=== PATIENT | female | born 1990 | race Caucasian/White ===

== ENCOUNTER 2018-02-22 13:27 | Inpatient (IN) | payer MEDICAID, OTHER, SELFPAY ==
[2018-02-22] MEDS ORDERED: NS / Oxytocin 40 units/1000ml 1,000 ML IV PRN (15:00)
[2018-02-22] MEDS ORDERED: Misoprostol 200 MCG TAB PR PRN (15:00)
[2018-02-22] MEDS ORDERED: Sodium Chloride 0.9% 100 ML ONE (15:00)
[2018-02-22] MEDS ORDERED: HYDROcodone/Acetaminophen 5/325 mg Tablet PO PRN (15:00)
[2018-02-22] MEDS ORDERED: Diphenoxylate HCl/Atropine Tablet PO PRN (15:00)
[2018-02-22] MEDS ORDERED: Ondansetron PF 4 MG/2 ML Vial IVP PRN ×2 (15:00→23:25)
[2018-02-22] MEDS ORDERED: Penicillin G Potassium 5 MILL.UNITS VIAL ONE (15:00)
[2018-02-22] MEDS ORDERED: Methylergonovine 0.2 MG/ML VIAL IM PRN (15:00)
[2018-02-22] MEDS ORDERED: Penicillin G Potassium 5 MILL.UNITS in Sodium Chloride 0.9% 100 ML IVPB SCH (15:00)
[2018-02-22] MEDS ORDERED: Ibuprofen 800 MG TAB PO PRN (15:00)
[2018-02-22] MEDS ORDERED: Carboprost 250 MCG/ML AMP IM PRN (15:00)
[2018-02-22] MEDS ORDERED: Lidocaine 1% (PF) 30 ML VIAL SC PRN (15:00)
[2018-02-22] MEDS ORDERED: NS w/ Oxytocin 10 units 0 ML ONE (15:15)
[2018-02-22] MEDS: Lactated Ringer's 1,000 ML IV SCH (15:27)
[2018-02-22 15:45] LABS: Hemoglobin 12.5 g/dL (12.0-16.0); Mean Corpuscular HGB CONC 35.2 g/dL (32.0-36.0); Mean Corpuscular Hemoglobin 32.4 pg (27.0-31.0); Mean Corpuscular Volume 92.1 fL (78.0-98.0); Mean Platelet Volume 9.2 fL (7.4-10.4); Platelet Count 277 thou/uL (130-400); RBC Distribution Width 12.3 % (11.5-14.5); Red Blood Cell (RBC) Count 3.84 mill/uL (4.20-5.40); White Blood Cell (WBC) Count 12.3 thou/uL (4.8-10.8)
[2018-02-22 16:21] VITALS: BMI 33.6
[2018-02-22 16:25] LABS: HBSAg Index 0.14 S/CO (0-0.99); Hep B Surf Ag Non-Reactive S/CO (NonReactive); Syphilis Antibody Nonreactive (Nonreactive); Syphilis Antibody Index 0.06 S/CO (<1.00 Non-Reactive)
[2018-02-22] MEDS ORDERED: NS w/ Oxytocin 10 units 500 ML IV SCH (17:00)
[2018-02-22] MEDS ORDERED: NS w/ Oxytocin 10 units 500 ML ONE (17:00)
--- NOTE | 2018-02-22 17:15 | PDOC.EVN ---
Event Note - Event Note Event Note: Asked to manage by Dr. Gomez. at 40 2/7 weeks, GBS +. 1st dose ABX given. AROM with light meconium seen. Last eam was / vtx. Pitocin starting now. Plan: Pitocin induction. Cont. ABX for + GBS status.
[2018-02-22] MEDS: Butorphanol Tartrate 1 MG/ML VIAL SLOW IVP PRN ×3 (18:56→22:22)
[2018-02-22] MEDS: Penicillin G 2.5 MILL.units 2.5 MILL.UNITS in Premix Bag 1 BAG IVPB SCH ×2 (19:45→23:45)
--- NOTE | 2018-02-22 19:52 | PDOC.EVN ---
Event Note - Event Note Event Note: /-3 Cat I strip Cxns every 2 min cont pitocin for augmentation GBS+ -second dose of penicillin at 2100 AROM -light [facility] <Bryan Caballero - Last Filed: 02/22/18 19:52> Attending Addendum - Attending Addendum Date/Time: 02/22/182210 I evaluated the patient and discussed the management with Dr. Caballero. I agree with the Assessment and Plan documented above. <Jerel Stearns - Last Filed: 02/22/18 22:11>
[2018-02-22] MEDS ORDERED: Fentanyl 4 mcg/Bup 0.1% Cadd 100 ML ONE (22:44)
--- NOTE | 2018-02-22 23:06 | PDOC.LDPN ---
Labor & Delivery Progress Note - Subjective Subjective: painful contractions - Objective Vital signs reviewed and normal: yes General: other (painful contractions) Dilation: 4 Effacement: 90% Station: -3 FHT: category 1 AROM: meconium stained fluid -: /-3 Cat I strip Cxns every 2 min cont pitocin for augmentation Check showed moderate cervical swelling, rec'd epidural to patient for pain management Risks/benefits of epidural were explained at length, patient agrees to epidural GBS+ -second dose of penicillin at 2100 AROM -light mec <Bryan Caballero - Last Filed: 02/22/18 23:04> Attending Addendum - Attending Addendum I personally evaluated the patient and discussed the management with Dr. Caballero. I agree with the Assessment and Plan documented above. <Jerel Stearns - Last Filed: 02/23/18 06:32>
[2018-02-22] MEDS ORDERED: Promethazine HCl 25 MG/ML VIAL IM PRN (23:25)
[2018-02-22] MEDS ORDERED: diphenhydrAMINE 50 MG/ML VIAL IVP PRN (23:25)
[2018-02-22] MEDS ORDERED: Lactated Ringer's 500 ML IV PRN (23:25)
[2018-02-22] MEDS ORDERED: ePHEDrine/0.9% NaCl/PF SYRINGE 50 mg/10 ml SLOW IVP PRN (23:25)
[2018-02-22] MEDS ORDERED: Hydrocerin (Eucerin) Cream 120 gm Jar TOP PRN (23:25)
[2018-02-22] MEDS ORDERED: Naloxone HCl 0.4 mg/ml Vial IVP PRN ×2 (23:25)
[2018-02-22] MEDS ORDERED: Acetaminophen 325 MG TAB PO PRN (23:25)
[2018-02-22] MEDS ORDERED: Fentanyl 4 mcg/Bupivacaine 0.1% Cassette 100 ML EPIDURAL SCH (23:30)
[2018-02-22] MEDS ORDERED: Communication Order-Pharmacy FS SCH (23:30)
--- NOTE | 2018-02-23 02:26 | PDOC.LDPN ---
Labor & Delivery Progress Note - Subjective Subjective: comfortable - Objective Vital signs reviewed and normal: yes General: NAD Dilation: 6 Effacement: 90% Station: -3 FHT: category 2, late decelerations (x3, then resolved) Other exam findings: 2-3 min AROM: meconium stained fluid - Assessment (1) Current Visit: Yes Status: Acute Comment: labor management -: /-3 Cat II strip Cxns every 2-3 min, late decels x3 bolus, position change, stopped pitocin will plan to re-check and restart pitocin in 1 hour or so resting comfortably with epidural GBS+ -penicillin prophylaxis AROM -light mec <Bryan Caballero - Last Filed: 02/23/18 02:27> Attending Addendum - Attending Addendum I personally evaluated the patient and discussed the management with Dr. Caballero. I agree with the Assessment and Plan documented above. <Jerel Stearns - Last Filed: 02/23/18 06:31>
--- NOTE | 2018-02-23 03:36 | PDOC.LDPN ---
Labor & Delivery Progress Note - Subjective Subjective: comfortable - Objective Abnormal vital signs: temp 100.9 General: NAD Uterine fundus: non tender Effacement: 90% Station: -2 FHT: category 1 [place] contractions every: 2 min AROM: meconium stained fluid - Assessment (1) Current Visit: Yes Status: Acute Comment: labor management -: /-2 Cat I strip Cxns every 2-3 min pit at 2 resting comfortably with epidural Chorioamnionitis - temp 100.9 - started amp/gent GBS+ -on ampicillin AROM - AROM at 1654 on 02/23, mec at that time <Bryan Caballero - Last Filed: 02/23/18 03:36> Attending Addendum - Attending Addendum I personally evaluated the patient and discussed the management with Dr. Caballero. I agree with the Assessment and Plan documented above. <Jerel Stearns - Last Filed: 02/23/18 06:30>
[2018-02-23] MEDS ORDERED: Gentamicin 20 MG/2 ML PF (Neonates) IVPB SCH ×2 (03:45→06:00)
[2018-02-23] MEDS ORDERED: Ampicillin 125 MG/5 ML VIAL IVPB SCH (03:45)
[2018-02-23] MEDS: Gentamicin Sulfate 80 MG in Premix Bag 1 BAG IVPB SCH ×3 (04:05→21:27)
[2018-02-23] MEDS: Ampicillin 2 GM in Sodium Chloride 0.9% 100 ML IVPB SCH ×4 (05:00→23:29)
[2018-02-23] MEDS ORDERED: Ampicillin 125 MG/5 ML VIAL SLOW IVP SCH (06:00)
--- NOTE | 2018-02-23 06:09 | PDOC.LDPN ---
Labor & Delivery Progress Note - Subjective Subjective: comfortable - Objective Vital signs reviewed and normal: yes General: NAD Uterine fundus: non tender Dilation: 7 Effacement: 90% Station: -2 FHT: category 1 [place] contractions every: 2 AROM: meconium stained fluid - Assessment (1) Current Visit: Yes Status: Acute Comment: labor management -: /-2 Cat I strip Cxns every 2-3 min on pitocin resting comfortably with epidural Chorioamnionitis - Tmax 100.9, last temp 100.4 - started amp/gent at 0400 GBS+ -on ampicillin AROM - AROM at 1654 on 02/23, mec at that time <Bryan Caballero - Last Filed: 02/23/18 06:07> Attending Addendum - Attending Addendum I personally evaluated the patient and discussed the management with Dr. Caballero. I agree with the Assessment and Plan documented above. <Jerel Stearns - Last Filed: 02/23/18 06:29>
[2018-02-23] MEDS ORDERED: Acetaminophen 325 MG Suppository PR SCH (06:15)
[2018-02-23] MEDS ORDERED: Lactated Ringer's 500 ML IV SCH (06:30)
[2018-02-23] MEDS: Lactated Ringer's 1,000 ML IV SCH ×3 (07:06→23:09)
--- NOTE | 2018-02-23 07:14 | PDOC.EVN ---
Event Note - Event Note Event Note: Comfortable with epidural. Temp at 6a= 100.7. IUPC placed at last exam. Fhts with adeq. BTBV, accels noted, no decels seen. SVE by me= /0 vtx. Pit at 6 mu/min. UCs q 2-4 min, adeq. pattern seen. A/P: Progressing now, continue Amp and Gent for chorioamnionitis.
--- NOTE | 2018-02-23 09:15 | PDOC.LDPN ---
Labor & Delivery Progress Note - Subjective Subjective: comfortable - Objective Abnormal vital signs: Febrile, tachycardic General: NAD, resting Uterine fundus: non tender SVE: 9:15 by Amee Dilation: 8 Effacement: 100% Station: 0 FHT: category 1, variability present [place] contractions every: q2 min with couplet contractions AROM: meconium stained fluid IUPC placed: yes - Assessment (1) Term Code(s): Z34.80 - ENCOUNTER FOR SUPRVSN OF NORMAL , UNSP TRIMESTER Current Visit: Yes Status: Acute (2) Chorioamnionitis Code(s): O41.1290 - CHORIOAMNIONITIS, UNSP TRIMESTER, NOT APPLICABLE OR UNSP Current Visit: Yes Status: Acute (3) GBS (group B Streptococcus carrier), +RV culture, currently Code(s): O99.820 - STREPTOCOCCUS B CARRIER STATE COMPLICATING Current Visit: Yes Status: Acute (4) Rh negative status during Code(s): O09.899 - SUPERVISION OF OTHER HIGH RISK PREGNANCIES, UNSP TRIMESTER; Z67.91 - UNSPECIFIED BLOOD TYPE, RH NEGATIVE Current Visit: Yes Status: Acute Plan: continue plan of care, labor augmentation, pitocin for augmentation -: 27 y/o Term in active labor - Cervical check 8/100/0 at 8:00 AM; no change from 2 hours previous - If patient not fully dilated, then will proceed with c/s as pt high risk with chorioamnionitis - On pitocin, resting comfortably with epidural Chorioamnionitis - Tmax 100.9, last temp 100.4 - started amp/gent at 0400 GBS+ -on ampicillin AROM - AROM at 1654 on 02/23, mec at that time Rh negative - Will need rhogam PP Dispo: If not complete and no descent in 2 hours, will plan for pLTCS. Patient has been ruptured since 16:54 yesterday and spiked fever at 0400. Amp/Gent started at 0400 for chorioamnionitis. Rain Lubin, DO PGY-2
--- NOTE | 2018-02-23 11:35 | PDOC.EVN ---
Event Note - Event Note Event Note: 02/23/2018 at 11:30 Rechecked patient at 11:15 and patient 9/100/+1. MVU's adequate. Patient not progressing as would be expected. As previously mentioned will proceed with C/S since patient not complete and labor has been dysfunctional. Discussed with patient in detail need to proceed with C/S at this time for failure to dilate/ failure to progress. Risks/benefits of C/S discussed with patient. Will give patient a dose of Clindamycin prior to C/S and continue for 24 hours after delivery. Will continue Amp/Gent for suspected IUI. Patient understood and was agreeable to proceed with C/S at this time. Rain Lubin, DO PGY-2 <Rain Lubin - Last Filed: 02/23/18 11:29> - Event Note Event Note: FACULTY NOTE: @1140: Patient has been 8cm/100/0 to +1 for 4 hours with adequate MVU (>200) persistenntly. Amp and Gent in use for suspected IAI. FHTs reactive, Level I. Due to no cervical change past 8cm despite adequate MVU, we will proceed for primary CS now that the ACOG guidelines/criteria for FTP have been met. We will add clinda to her postop regimine. Plan D/W patient and family. Anesthesia called. <Byron Luna - Last Filed: 02/23/18 11:40>
[2018-02-23] MEDS ORDERED: Bicitra 30 ML UDCUP PO SCH (11:45)
[2018-02-23] MEDS: Clindamycin/D5W 900 MG in Premix Bag 1 BAG IVPB SCH ×2 (12:05→20:13)
[2018-02-23] MEDS ORDERED: Ondansetron PF 4 MG/2 ML Vial IVP PRN (12:07)
[2018-02-23] MEDS ORDERED: Meperidine HCl/PF 25 MG/ML VIAL SLOW IVP PRN (12:07)
[2018-02-23] MEDS ORDERED: Eucerin (Mineral Oil/Petrolatum,White) 30 gm Jar TOP PRN (12:07)
[2018-02-23] MEDS ORDERED: HYDROmorphone 2 MG/ML VIAL SLOW IVP PRN (12:07)
[2018-02-23] MEDS ORDERED: Promethazine HCl 25 MG SUPP PR PRN (12:07)
[2018-02-23] MEDS ORDERED: L&D-Morphine 4 MG/ML VIAL SLOW IVP PRN (12:07)
[2018-02-23] MEDS ORDERED: Naloxone HCl 0.4 mg/ml Vial IVP PRN ×2 (12:07)
[2018-02-23] MEDS ORDERED: Promethazine HCl 25 MG/ML VIAL IM PRN (12:07)
[2018-02-23] MEDS ORDERED: Naloxone HCl 0.4 mg/ml Vial IV PRN (12:07)
[2018-02-23] MEDS ORDERED: diphenhydrAMINE 50 MG/ML VIAL IVP PRN (12:07)
[2018-02-23] MEDS ORDERED: Ondansetron HCl/PF 4 MG/2 ML Vial IVP PRN (12:07)
[2018-02-23] MEDS ORDERED: Communication Order-Pharmacy FS SCH (12:15)
[2018-02-23] MEDS ORDERED: Ketorolac Tromethamine 30 MG/ML VIAL IVP SCH (12:15)
[2018-02-23] MEDS ORDERED: Oxytocin 10 UNITS/ML VIAL ONE (12:16)
[2018-02-23] MEDS ORDERED: Morphine PF 1 MG/ML SYR ONE (12:16)
[2018-02-23] MEDS ORDERED: Ketorolac Tromethamine 30 MG/ML VIAL ONE ×2 (12:44→13:03)
--- NOTE | 2018-02-23 13:24 | PDOC.EVN ---
Event Note - Event Note Event Note: CS Note: Primary LTCS on at approx 1300...see dictation. Aaron Lubin and Jeremy EBL 600 Continue IV ABX
[2018-02-23] MEDS ORDERED: Lanolin Ointment 7 GM TUBE TOP PRN (13:28)
[2018-02-23] MEDS ORDERED: Measles/Mumps/Rubella 10 MCG/0.5 ML VIAL SC ONE (13:28)
[2018-02-23] MEDS ORDERED: Varicella virus, LIVE 0.5 ML VIAL SC ONE (13:28)
[2018-02-23] MEDS ORDERED: diphenhydrAMINE 25 MG CAP PO PRN (13:28)
[2018-02-23] MEDS ORDERED: Adacel (T-DAP) 0.5 ML SYRINGE IM ONE (13:28)
--- NOTE | 2018-02-23 15:07 | OP ---
DATE OF PROCEDURE: 02/23/2018 TIME OF PROCEDURE: Roughly 1300 hours or so. LOCATION: Labor and Delivery OR. PREOPERATIVE DIAGNOSES: 1. Primigravida with arrest of dilation/failure to progress at 8 cm. 2. Suspected intra-amniotic infection. POSTOPERATIVE DIAGNOSES: 1. Primigravida with arrest of dilation/failure to progress at 8 cm. 2. Suspected intra-amniotic infection. 3. Status post primary low transverse section. PROCEDURES PERFORMED: 1. Primary low transverse section via Pfannenstiel skin incision. 2. Delayed cord clamping of the . VEHICLE BODY [employer]KER: Rain Lubin DO ANESTHESIA: Labor epidural. ANTIBIOTICS: Ampicillin and gentamicin given preop. Intraop antibiotics were gentamicin which was the next scheduled dose and clindamycin 900 mg IV which was the additional antibiotic. ESTIMATED BLOOD LOSS: Roughly 600 mL, and QBL was pending. IV FLUIDS: About 1200 mL of crystalloids. URINE OUTPUT: About 300 mL of pink, slightly blood-tinged urine, but no tania hematuria. COMPLICATIONS: None. COUNTS: Correct. FINDINGS: 1. There are no intra-abdominal pelvic adhesions. 2. No uterine or adnexal pathology. 3. Thin meconium at entry into the uterine cavity. 4. NICU present in the room. 5. Vigorous male with Apgars 9 and 9. 6. Three-vessel cord, intact placenta. 7. Nuchal cord x1 reduced. 8. Umbilical arterial blood gas was attempted, but not successful due to limited blood in the segment. 9. Placenta sent to Pathology. DISPOSITION: To recovery room in good and stable condition. TECHNIQUE/DESCRIPTION: After proper informed consent was obtained, the need for was discussed with the patient, which was failure to progress for 4 hours despite adequate monitoring in the daily unit and intra-amniotic infection. She was taken to the OR, where she was dosed of her labor epidural anesthetic. The patient's abdomen was prepped and draped in the usual sterile fashion. A Pfannenstiel skin incision was made with a scalpel in the usual manner. Bovie cautery was used to dissect the subcutaneous tissue down to the level of the fascia. The fascia was identified, cleaned off any overlying fat, and entered with Bovie cautery on cut mode. This was done in the transverse fashion. The rectus muscles were then off the fascia both superiorly and inferiorly off the midline, and the rectus muscles were away from the midline. Peritoneum was bluntly dissected, and entry into the abdominal pelvic cavity was done without incident. An Kermit large O retractor was placed into the wound for visualization. A low transverse hysterotomy was made without bladder flap creation. The hysterotomy was done without extension, and the baby was in a cephalic presentation. Baby was delivered, and the nuchal cord was reduced, and then the shoulders delivered and the remainder of the body. About 30 seconds delayed cord clamp was performed. Baby was vigorous. Placenta was gently massaged out of the uterine cavity, and it was intact. Curettage of the uterine cavity confirmed absence of retained tissue. The uterus was closed with #1 Vicryl in a running locking fashion. The uterus was closed in 2 layers. Copious irrigation was done, and after confirming hemostasis, the rectus muscles were closed in the midline with 2-0 chromic in a horizontal mattress style closure. Three mattress sutures were used to close the rectal separation. The fascia was closed with 0 PDS x2 in the typical running nonlocking fashion. No defects were noted on closure. Subcutaneous tissue was copiously irrigated and closed with 3-0 plain gut. The skin was closed with 4-0 Monocryl, and Dermabond liquid adhesive was placed over the wound to serve as a barrier. No complications were noted, baby was vigorous, and mother was alert and oriented. The patient will be transported to Recovery to continue her triple-antibiotic therapy. Job ID: [id number]
[2018-02-23] MEDS: NS w/ Oxytocin 10 units 500 ML IV SCH ×2 (15:35→22:09)
[2018-02-23] MEDS ORDERED: Meperidine HCl/PF 25 MG/ML VIAL ONE (17:31)
[2018-02-23] MEDS: Ketorolac Tromethamine 30 MG/ML VIAL IVP PRN (21:22)
[2018-02-23] MEDS: Penicillin G 2.5 MILL.units 2.5 MILL.UNITS in Premix Bag 1 BAG IVPB SCH (22:14)
[2018-02-24] MEDS ORDERED: Meperidine HCl/PF 25 MG/ML VIAL IM PRN (00:15)
[2018-02-24] MEDS ORDERED: Acetaminophen/Codeine 30-300mg Tablet PO PRN ×2 (00:15→00:30)
--- NOTE | 2018-02-24 01:05 | PDOC.PP ---
Post Progress Note Post Day #: 1 Subjective: Patient doing well. No significant overnight events. Patient denies any pain this AM. Minimal lochia. patient tolerating PO. PO intake tolerated: yes Flatus: yes Ambulation: yes Vital Signs (12 hours) Temp Pulse Resp BP Pulse Ox 02/23/18 23:50 98.8 F 104 H 20 102/64 02/23/18 20:00 98.6 F 114 H 20 108/64 96 02/23/18 18:30 100.6 F H 124 H 18 106/60 97 Weight Weight 75.75 kg - Physical Examination General: NAD Cardiovascular: no m/r/g, RRR Respiratory: clear to auscultation bilaterally, non-labored breathing Abdominal: + bowel sounds, lochia (less than period), no distention, appropriately TTP Fundus firm & at: umbilicus Skin: CS incision dry & intact Neurological: no gross focal deficits Psychiatric: A&Ox3, normal affect Result Diagrams: 02/22/18 15:34 Additional Labs: Post Labs Blood Type O NEGATIVE 02/22/18 15:34 Hep Bs Antigen Non-Reactive S/CO (NonReactive) 02/22/18 15:34 (1) Term Code(s): Z34.80 - ENCOUNTER FOR SUPRVSN OF NORMAL , UNSP TRIMESTER Status: Acute (2) Chorioamnionitis Code(s): O41.1290 - CHORIOAMNIONITIS, UNSP TRIMESTER, NOT APPLICABLE OR UNSP Status: Acute (3) GBS (group B Streptococcus carrier), +RV culture, currently Code(s): O99.820 - STREPTOCOCCUS B CARRIER STATE COMPLICATING Status : Acute (4) Rh negative status during Code(s): O09.899 - SUPERVISION OF OTHER HIGH RISK PREGNANCIES, UNSP TRIMESTER; Z67.91 - UNSPECIFIED BLOOD TYPE, RH NEGATIVE Status: Acute (5) S/P primary low transverse Code(s): Z98.891 - HISTORY OF UTERINE SCAR FROM PREVIOUS SURGERY Status: Acute - Assessment/Plan 27 y/o G1 --> P1 s/p pLTCS for FTP - Routine PP care - Uncomplicated C/S - Encourage ambulation - Continue routine PP care Suspected IAI - Tmax 100.9 initially, then started on antibiotics - started amp/gent at 0400; will continue for 24 hours PP - Patient spiked fever at 18:30 to 100.6, patient also tachycardic - Her uterus is mildly tender to palpation - Patient on triple antibiotic therapy to include amp, gent, and clindamycin - Placenta sent for confirmation - Cord segment collected but unable to send for gases GBS+ - Adequately treated Rh negative - Will need rhogam PP Dispo: Continue routine PP management. Continue to monitor for infection. <Rain Lubin - Last Filed: 02/24/18 01:09> Vital Signs (12 hours) Temp Pulse Resp BP Pulse Ox 02/24/18 05:20 98.9 F 104 H 18 103/66 02/23/18 23:50 98.8 F 104 H 20 102/64 02/23/18 20:00 98.6 F 114 H 20 108/64 96 02/23/18 18:30 100.6 F H 124 H 18 106/60 97 Weight Weight 167 lb Result Diagrams: 02/22/18 15:34 Additional Labs: Post Labs Blood Type O NEGATIVE 02/22/18 15:34 Hep Bs Antigen Non-Reactive S/CO (NonReactive) 02/22/18 15:34 - Assessment/Plan Faculty: One temp noted as decribed..we will continue triple antibiotics for now. No evidence wound complication or ileus. <Byron Luna - Last Filed: 02/24/18 06:03>
[2018-02-24] MEDS: Clindamycin/D5W 900 MG in Premix Bag 1 BAG IVPB SCH ×3 (03:12→19:44)
[2018-02-24] MEDS: Gentamicin Sulfate 80 MG in Premix Bag 1 BAG IVPB SCH ×3 (04:29→20:47)
[2018-02-24] MEDS: Ampicillin 2 GM in Sodium Chloride 0.9% 100 ML IVPB SCH ×4 (05:51→22:15)
[2018-02-24] MEDS: Ketorolac Tromethamine 30 MG/ML VIAL IVP PRN (05:51)
[2018-02-24 07:16] LABS: Mean Corpuscular Hemoglobin 32.6 pg (27.0-31.0); Mean Corpuscular Volume 93.3 fL (78.0-98.0); Mean Platelet Volume 8.8 fL (7.4-10.4); Platelet Count 211 thou/uL (130-400); RBC Distribution Width 12.5 % (11.5-14.5); Red Blood Cell (RBC) Count 3.05 mill/uL (4.20-5.40); White Blood Cell (WBC) Count 16.3 thou/uL (4.8-10.8)
--- NOTE | 2018-02-24 08:12 | PDOC.EVN ---
Event Note - Event Note Event Note: Postop HCT 28, acceptible from surgery Follow temps
[2018-02-24] MEDS: Lactated Ringer's 1,000 ML IV SCH ×2 (08:46→16:40)
[2018-02-24] MEDS: Prenatal Vitamin 1 TAB PO SCH (08:46)
[2018-02-24] MEDS: Simethicone Chewable 80 MG TAB PO PRN ×2 (10:04→20:49)
[2018-02-24] MEDS: Ibuprofen 800 MG TAB PO SCH ×2 (13:33→20:47)
[2018-02-24] MEDS: NS w/ Oxytocin 10 units 500 ML IV SCH (16:42)
[2018-02-24] MEDS: Acetaminophen/Codeine 30-300mg Tablet PO PRN ×2 (16:45→20:48)
[2018-02-25] MEDS: Lactated Ringer's 1,000 ML IV SCH ×4 (00:09→21:39)
--- NOTE | 2018-02-25 00:43 | PDOC.PP ---
Post Progress Note Post Day #: POD#2 Subjective: Resting. No complaints. PO intake tolerated: yes Flatus: yes Ambulation: yes Vital Signs (12 hours) Temp Pulse Resp BP BP Pulse Ox 02/25/18 00:00 99.1 F 109 H 18 111/65 02/24/18 20:00 98.6 F 95 16 113/64 100 02/24/18 13:30 97.8 F 92 20 99/58 L Weight Weight 75.75 kg - Physical Examination General: NAD Respiratory: non-labored breathing Abdominal: no distention Skin: CS incision dry & intact Psychiatric: A&Ox3, normal affect Result Diagrams: 02/24/18 06:56 Additional Labs: Post Labs Blood Type O NEGATIVE 02/22/18 15:34 Hep Bs Antigen Non-Reactive S/CO (NonReactive) 02/22/18 15:34 - Assessment/Plan Doing well. DC triple ABX if AF x 48 hrs. Ambulate. Advance diet.
[2018-02-25] MEDS: Clindamycin/D5W 900 MG in Premix Bag 1 BAG IVPB SCH ×2 (03:00→13:08)
[2018-02-25] MEDS ORDERED: Sodium Chloride 0.9% 10 ML ONE (03:15)
[2018-02-25] MEDS: Gentamicin Sulfate 80 MG in Premix Bag 1 BAG IVPB SCH ×2 (04:47→11:30)
[2018-02-25] MEDS: Ibuprofen 800 MG TAB PO SCH ×3 (05:59→21:39)
[2018-02-25] MEDS: Ampicillin 2 GM in Sodium Chloride 0.9% 100 ML IVPB SCH ×3 (06:00→16:28)
[2018-02-25] MEDS ORDERED: Bupivacaine HCl 0.5%/Epinephrine 1:200,000/PF 30 ml Vial ONE (07:23)
[2018-02-25] MEDS ORDERED: Bupivacaine/Epinephrine 0.25% 30 ML VIAL ONE (07:23)
[2018-02-25] MEDS: Prenatal Vitamin 1 TAB PO SCH (09:12)
[2018-02-25] MEDS: NS w/ Oxytocin 10 units 500 ML IV SCH (15:40)
[2018-02-25] MEDS: Acetaminophen/Codeine 30-300mg Tablet PO PRN (16:31)
[2018-02-26] MEDS: Ibuprofen 800 MG TAB PO SCH ×2 (00:29→05:17)
[2018-02-26] MEDS: Acetaminophen/Codeine 30-300mg Tablet PO PRN ×2 (00:29→09:02)
[2018-02-26 05:25] VITALS: TEMP 98.4
[2018-02-26] MEDS: Lactated Ringer's 1,000 ML IV SCH (05:31)
[2018-02-26 08:05] VITALS: BP 104/61
[2018-02-26] MEDS: Prenatal Vitamin 1 TAB PO SCH (08:59)
--- NOTE | 2018-02-27 04:51 | DIS ---
DATE OF ADMISSION: 02/22/2018 DATE OF DISCHARGE: 02/26/2018 DATE OF ENCOUNTER: 02/26/2018 ADMITTING DIAGNOSES: 1. Labor. 2. Intrauterine at 40 weeks. DISCHARGE DIAGNOSES: 1. Labor. 2. Intrauterine at 40 weeks. 3. Failure to progress of labor. PROCEDURE PERFORMED: Primary low transverse section. CONSULTATIONS: None. HOSPITAL COURSE: The patient is a 27-year-old female, who presented at 40 weeks gestation in latent labor and was admitted for augmentation. Her labor course was complicated by arrest of labor and the patient was taken to the operating room for a primary . For complete details, please refer to the operative note. Her postoperative course has been complicated by a suspected diagnosis of chorioamnionitis, and was placed on triple antibiotics; gentamicin, clindamycin, and ampicillin. The patient's last fever was on 02/23/2018 at 6:30 p.m., which is more than 48 hours from this encounter. The patient today reports that she is tolerating p.o., voiding on her own, having decreased lochia and good pain control. PHYSICAL EXAMINATION: VITAL SIGNS: Most recent blood pressure is 97/56, pulse of 96, respiratory rate 16, saturating 97% on room air, and temperature 98.4. GENERAL: She appears to be in no acute distress. She is alert and oriented, cooperative, pleasant to interact with. HEAD: Normocephalic and atraumatic. ABDOMEN: Soft. Fundus is firm. Incision is clean, dry, and intact with suture. LABORATORY DATA: Post delivery hemoglobin is 10, hematocrit 28.5, and platelets of 211,000. The patient will be discharged to home today with ibuprofen and Tylenol No. 3 as needed for pain control. She has instructions to follow up with her primary OB, Dr. Gomez in 2 weeks for an incision check or sooner if she experiences fever, increasing pain or bleeding, drainage or redness at the incision site. Job ID: [id number]
== END 2018-02-26 13:45 | disposition home or self-care (01) | DRG 786 ==
LOC: L&D/OP 13:27 → L&D 15:20 → 3SW 02-23 18:00
PROVIDERS: ADMIT Family Medicine; ATTEND Family Medicine
PROC: 10D00Z1 Extraction of Products of Conception, Low, Open Approach (ICD-10-PCS; principal; 2018-02-23)
PROC: 10H07YZ Insertion of Other Device into Products of Conception, Via Natural or Artificial Opening (ICD-10-PCS; 2018-02-23)
PROC: 4A1H7CZ Monitoring of Products of Conception, Cardiac Rate, Via Natural or Artificial Opening (ICD-10-PCS; 2018-02-23)
PROC: 10907ZC Drainage of Amniotic Fluid, Therapeutic from Products of Conception, Via Natural or Artificial Opening (ICD-10-PCS; 2018-02-23)
PROC: 3E0234Z Introduction of Serum, Toxoid and Vaccine into Muscle, Percutaneous Approach (ICD-10-PCS; 2018-02-26)
DX: O48.0 Post-term pregnancy (principal); O41.1230 Chorioamnionitis, third trimester, not applicable or unspecified; O99.824 Streptococcus B carrier state complicating childbirth; Z3A.40 40 weeks gestation of pregnancy; O62.1 Secondary uterine inertia; Z37.0 Single live birth; O76 Abnormality in fetal heart rate and rhythm complicating labor and delivery; O77.0 Labor and delivery complicated by meconium in amniotic fluid; Z23 Encounter for immunization
CPT/HCPCS: 36415; 51702; 85027; 85461; 86780; 86850; 86900; 86901; 87340; 88307; 90384; 90707; 96372; 99285; J0290; J0595; J0670; J1580; J1885; J2175; J2274; J2405; J2540; J2590; J3490; J7050